=== PATIENT | female | born 1975 | race Caucasian/White ===

== ENCOUNTER 2024-05-09 09:45 | Outpatient (CLI) | payer OTHER, SELFPAY ==
[2024-05-09] MEDS: ALBUTEROL 0.083% 2.5 MG/3 ML NEB IH (10:17)
== END 2024-05-09 23:59 | disposition home or self-care (01) ==
LOC: RT 09:46
PROVIDERS: PCP Family Medicine; Visit Provider Internal Medicine Pulmonary Disease
DX: R06.02 Shortness of breath (principal)
CPT/HCPCS: 94060; 94726; 94729; J7613